=== PATIENT | female | born 1975 | race Caucasian/White ===

== ENCOUNTER 2021-02-12 08:04 | Outpatient (CLI) | payer BC | END 2021-02-12 08:05 | disposition home or self-care (01) | LOC: SCSMRI 08:04 | PROVIDERS: ATTEND Neurological Surgery | DX: M51.36 Other intervertebral disc degeneration, lumbar region (principal); M51.37 Other intervertebral disc degeneration, lumbosacral region | CPT/HCPCS: 72148 ==

== ENCOUNTER 2021-06-26 12:43 | Outpatient (CLI) | payer OTHER | END 2021-06-26 12:44 | disposition home or self-care (01) | LOC: TBSIIMAG 12:43 | PROVIDERS: ATTEND Neurological Surgery | DX: M47.26 Other spondylosis with radiculopathy, lumbar region (principal); Z98.890 Other specified postprocedural states | CPT/HCPCS: 72100 ==

== ENCOUNTER 2021-07-18 09:50 | Outpatient (CLI) | payer BC | END 2021-07-18 09:51 | disposition home or self-care (01) | LOC: TBSIIMAG 09:50 | PROVIDERS: ATTEND Neurological Surgery | DX: M47.26 Other spondylosis with radiculopathy, lumbar region (principal); Z98.890 Other specified postprocedural states | CPT/HCPCS: 72100 ==

== ENCOUNTER 2021-08-21 13:16 | Outpatient (CLI) | payer BC | END 2021-08-21 13:17 | disposition home or self-care (01) | LOC: TBSIIMAG 13:16 | PROVIDERS: ATTEND Neurological Surgery | DX: M54.50 Low back pain, unspecified (principal); Z98.890 Other specified postprocedural states | CPT/HCPCS: 72100 ==

== ENCOUNTER 2025-04-24 21:57 | Emergency (ER) | payer BC, SELFPAY ==
[2025-04-25] MEDS ORDERED: HYDROcodone/Acetaminophen 5/325 mg Tablet ONE (01:58)
[2025-04-25] MEDS ORDERED: Methocarbamol 500 MG TAB ONE (02:09)
[2025-04-25] MEDS ORDERED: Methocarbamol 500 MG TAB PO SCH (02:15)
== END 2025-04-25 02:11 | disposition home or self-care (01) ==
LOC: ERS 21:57
DX: M25.511 Pain in right shoulder (principal); I10 Essential (primary) hypertension
CPT/HCPCS: 99283; Q0162